=== PATIENT | female | born 1950 | race Caucasian/White ===

== ENCOUNTER 2023-05-20 13:50 | Emergency (ER) | payer MEDICARE, MEDICAID, SELFPAY ==
--- NOTE | ~2023-05-20 | CT_ITS ---
EXAMINATION: CT brain wo con DATE: 05/20/2023 14:37 INDICATION: Head injury. Struck back of head. Laceration. TECHNIQUE: Computed tomography (CT) of the head was performed without intravenous contrast. The mA wa s adjusted according to patient size. Iterative reconstruction technique was employed. Exam dose: 68 1.00 mGy-cm total exam DLP. COMPARISON: None FINDINGS: No intracranial mass lesion or hemorrhage or cerebrovascular accident, midline shift or mas s effect is detected. Normal ventricular size. No subdural or epidural hematoma is detected. Bilateral carotid siphon internal carotid artery calcifications and vertebral artery calcifications, basilar artery calcification. There are radiopaque sutures right parasagittal posterior parietal area, but there is no skull fractu re. The mastoid air cells and paranasal sinuses are normally developed and aerated. IMPRESSION: Right posterior parietal parasagittal scalp laceration; no skull fracture or acute intra cranial finding Reviewed, dictated and finalized at [facility] Reviewed, dictated and finalized at [facility] IMPRESSION: Right posterior parietal parasagittal scalp laceration; no skull f racture or acute intracranial finding
--- NOTE | ~2023-05-20 | CT_ITS ---
EXAMINATION: CT cervical spine wo con DATE: 05/20/2023 14:37 INDICATION: Fall. Head injury, laceration TECHNIQUE: Computed tomography (CT) of the cervical spine was performed without intravenous contrast. Automated exposure control and iterative reconstruction technique were employed. Exam dose: 310.63 mGy-cm total exam DLP. COMPARISON: None FINDINGS: C1 and C2 are normally aligned and the odontoid process is intact. No fracture or dislocati on or locked facet or prevertebral soft tissue swelling is detected. There is posterior spurring and bilateral uncovertebral joint spurring at C5-6. Mild loss of interspa ce height at C5-6 and C6-7. IMPRESSION: Mild cervical spondylosis including posterior spurring and bilateral uncovertebral joint spurring at C5-6; no fracture or dislocation or locked facet Reviewed, dictated and finalized at [facility]. Reviewed, dictated and finalized at [facility]. [employer] IMPRESSION: Mild cervical spondylosis including posterior spurring and bilater al uncovertebral joint spurring at C5-6; no fracture or dislocation or locked f acet
[2023-05-20 13:52] VITALS: BP 158/88; PULSE 73; RESP 20; TEMP 36.8; O2SAT 100
[2023-05-20] MEDS: TETANUS,DIPHTHERIA,AC PERTUSSIS ADULT (0.5 ML) BOOSTRIX IM (14:21)
--- NOTE | 2023-05-20 14:25 | ED.GENADULT ---
HPI - General Adult General Chief complaint: Head Injury Stated complaint: head, right arm Time Seen by Provider: 05/20/23 13:58 History of Present Illness HPI narrative: 72-year-old female presented emergency department for evaluation after having a ground level fall While playing basketball. Patient states that she was playing basketball she fell and struck her head on a brick retaining wall. patient's tetanus is not up-to-date. Patient does have a laceration to her scalp. Patient denies any other pain or injury. Related Data Allergies Allergy/AdvReac Type Severity Reaction Status Date / Time penicillin G Allergy Unknown Verified 05/20/23 13:52 Review of Systems Review of Systems: All systems reviewed & are unremarkable except as noted in HPI and below Exam Narrative: APPEARANCE: Well appearing, no pain, no distress, well-nourished. HEAD: normocephalic, atraumatic. EYES: PERRLA/EOMI, conjunctivae clear. NOSE: Normal no drainage EARS:TMS clear with good light reflex. THROAT: Pharynx clear, no exudate. NECK: Supple. No adenopathy, no masses. RESPIRATORY: Airway patent, respirations nonlabored. Clear to auscultation bilaterally, no rales, rhonchi, wheezing. CARDIOVASCULAR: Regular rate and rhythm without murmurs rubs or gallops. ABDOMINAL: Soft, nontender, nondistended, normal bowel sounds MUSCULOSKELETAL: Moves all extremities. Strength/ROM intact, No edema, No calf tenderness. NEURO: Alert. Cranial nerves II through XII intact. Good gait. Good coordination SKIN: 3 cm scalp laceration to scalp Course Course Emergency Course: 72-year-old female presenting to the ED after having a ground level fall. His laceration was repaired as described in the procedure note. Patient's head and cervical spine CTs were negative. Patient and mother of the results of the workup they are comfortable with plan with discharge and close follow-up. Patient was able to ambulate at her baseline at time of discharge. Vital Signs Vital signs: Vital Signs Temperature 98.2 F 05/20/23 13:52 Pulse Rate 73 05/20/23 13:52 Respiratory Rate 20 05/20/23 13:52 Blood Pressure 158/88 H 05/20/23 13:52 Pulse Oximetry 100 05/20/23 13:52 Oxygen Delivery Room Air 05/20/23 13:52 Temperature 98.2 F 05/20/23 13:52 Pulse Rate 73 05/20/23 13:52 Respiratory Rate 20 05/20/23 13:52 Blood Pressure 158/88 H 05/20/23 13:52 Pulse Oximetry 100 05/20/23 13:52 Oxygen Delivery Room Air 05/20/23 13:52 Procedures Laceration Laceration 1: Site: scalp Side (If applicable): right Size (cm): 3 Description: linear Depth: simple, single layer Pre-repair: wound explored ====== Skin Level ====== Skin layer closed with: luis Number of sutures: 4 ====== Subcutaneous Layer ====== ====== Muscle Layer ====== ====== Tendon Layer ====== Medical Decision Making Vital Signs Vital Signs: Vital Signs Temperature 98.2 F 05/20/23 13:52 Pulse Rate 73 05/20/23 13:52 Respiratory Rate 20 05/20/23 13:52 Blood Pressure 158/88 H 05/20/23 13:52 Pulse Oximetry 100 05/20/23 13:52 Oxygen Delivery Room Air 05/20/23 13:52 Temperature 98.2 F 05/20/23 13:52 Pulse Rate 73 05/20/23 13:52 Respiratory Rate 20 05/20/23 13:52 Blood Pressure 158/88 H 05/20/23 13:52 Pulse Oximetry 100 05/20/23 13:52 Oxygen Delivery Room Air 05/20/23 13:52 Discharge Plan Discharge Clinical Impression: Closed head injury, Laceration of head Patient Disposition: Home, Self-Care Condition: Stable Instructions: Antibiotic Form, Laceration (DC), Head Injury (ED) Additional Instructions: You prefered to not wait for your cervical spine CT to be resulted. Luis will need to be removed in 5-7 days. Have close follow-up with her primary care physician. Head injury guidelines as directed. Follow-up/Referrals: [facility]
== END 2023-05-20 16:17 | disposition home or self-care (01) ==
PROVIDERS: Emergency Provider Emergency Medicine
DX: S01.01XA Laceration without foreign body of scalp, initial encounter (principal); Z23 Encounter for immunization; Y93.67 Activity, basketball; M47.812 Spondylosis without myelopathy or radiculopathy, cervical region; W01.198A Fall on same level from slipping, tripping and stumbling with subsequent striking against other object, initial encounter
CPT/HCPCS: 12002; 70450; 72125; 90471; 90715; 99284